=== PATIENT | female | born 1965 | race Caucasian/White ===

== ENCOUNTER 2018-12-28 18:49 | Emergency (ER) | payer BC ==
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
[2018-12-28] MEDS ORDERED: Diphtheria,Pertussis(Acell),Tetanus Vaccine 0.5 ML Syringe IM ONE (19:06)
--- NOTE | 2018-12-28 19:37 | CR ---
INDICATION: Left thumb laceration. TECHNIQUE: Three views of the left thumb. COMPARISON: None. FINDINGS: Laceration not identified with certainty. No soft tissue air or foreign body. No fracture, subluxation or other abnormality. IMPRESSION: Negative left thumb. Dictated by Ravin Waite MD @ Dec 28 2018 7:34PM Signed by Dr. Ravin Waite @ Dec 28 2018 7:35PM
[2018-12-28] MEDS ORDERED: Bacitracin Oint 1 GM U/D Packet TOP ONE (20:04)
[2018-12-28 20:22] VITALS: BP 144/86
== END 2018-12-28 20:20 | disposition home or self-care (01) ==
LOC: MW.ED 18:49
DX: S61.012A Laceration without foreign body of left thumb without damage to nail, initial encounter (principal); Z23 Encounter for immunization; I10 Essential (primary) hypertension; E78.00 Pure hypercholesterolemia, unspecified; K21.9 Gastro-esophageal reflux disease without esophagitis; F41.9 Anxiety disorder, unspecified; F32.9 Major depressive disorder, single episode, unspecified; Z79.899 Other long term (current) drug therapy; Z88.2 Allergy status to sulfonamides; W22.8XXA Striking against or struck by other objects, initial encounter
CPT/HCPCS: 12001; 73140; 90471; 90715; 99283; J2001

== ENCOUNTER 2024-01-02 09:38 | Day surgery (SDC) | payer BC, OTHER ==
[2024-01-02] MEDS: Lactated Ringers 1,000 ML IV SCH (10:11)
[2024-01-02] MEDS ORDERED: propofoL 50 ML ONE (11:25)
[2024-01-02 11:56] VITALS: BP 136/64; PULSE 78
== END 2024-01-02 12:30 | disposition home or self-care (01) ==
LOC: MW.SDS 09:38
PROVIDERS: ATTEND Surgery
DX: K44.9 Diaphragmatic hernia without obstruction or gangrene (principal); R13.10 Dysphagia, unspecified; K21.9 Gastro-esophageal reflux disease without esophagitis; E78.00 Pure hypercholesterolemia, unspecified; Z79.899 Other long term (current) drug therapy; Z88.2 Allergy status to sulfonamides
CPT/HCPCS: 43239; J2704; J7120; 00731